=== PATIENT | female | born 1985 | race Two or more races ===

== ENCOUNTER 2020-02-02 13:32 | Outpatient (REF) | payer MEDICARE, MEDICAID, SELFPAY | END 2020-02-02 13:33 | disposition home or self-care (01) | LOC: HO.LAB 13:32 | PROVIDERS: Visit Provider Internal Medicine | DX: Z20.828 Contact with and (suspected) exposure to other viral communicable diseases (principal) | CPT/HCPCS: C9803; U0003 ==

== ENCOUNTER 2020-07-11 07:43 | Outpatient (REF) | payer MEDICARE, MEDICAID, SELFPAY ==
--- NOTE | ~2020-07-11 | XR_ITS ---
EXAMINATION: BILATERAL HAND AND BILATERAL FOOT. CLINICAL INFORMATION: Pain. COMPARISON: None TECHNIQUE: 3 views each hand. 3 views each foot. FINDINGS: Bilateral hands: The PIP, DIP and MCP joint spaces are maintained. The intercarpal joints recommended as well. No visible fracture, dislocation or subluxation seen. Bilateral foot: There are small calcaneal calculi enthesophytes. Ankle mortise and subtalar joints are normal. The joint spaces are maintained normal. No bony erosive changes. The soft tissues are normal. 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 There is a small bone fragment lateral to left distal fourth metatarsal likely old injury. XR/XR foot LT 2V IMPRESSION: Unremarkable bilateral hand exam. Bilateral small calcaneal heel and retrocalcaneal enthesophytes. Short left fourth metatarsal. Small avulsion bone fragment seen lateral to the distal fourth metatarsal likely old injury.
--- NOTE | ~2020-07-11 | XR_ITS ---
EXAMINATION: BILATERAL HAND AND BILATERAL FOOT. CLINICAL INFORMATION: Pain. COMPARISON: None TECHNIQUE: 3 views each hand. 3 views each foot. FINDINGS: Bilateral hands: The PIP, DIP and MCP joint spaces are maintained. The intercarpal joints recommended as well. No visible fracture, dislocation or subluxation seen. Bilateral foot: There are small calcaneal calculi enthesophytes. Ankle mortise and subtalar joints are normal. The joint spaces are maintained normal. No bony erosive changes. The soft tissues are normal. 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 There is a small bone fragment lateral to left distal fourth metatarsal likely old injury. XR/XR hand LT 2V IMPRESSION: Unremarkable bilateral hand exam. Bilateral small calcaneal heel and retrocalcaneal enthesophytes. Short left fourth metatarsal. Small avulsion bone fragment seen lateral to the distal fourth metatarsal likely old injury.
--- NOTE | ~2020-07-11 | XR_ITS ---
EXAMINATION: BILATERAL HAND AND BILATERAL FOOT. CLINICAL INFORMATION: Pain. COMPARISON: None TECHNIQUE: 3 views each hand. 3 views each foot. FINDINGS: Bilateral hands: The PIP, DIP and MCP joint spaces are maintained. The intercarpal joints recommended as well. No visible fracture, dislocation or subluxation seen. Bilateral foot: There are small calcaneal calculi enthesophytes. Ankle mortise and subtalar joints are normal. The joint spaces are maintained normal. No bony erosive changes. The soft tissues are normal. 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 There is a small bone fragment lateral to left distal fourth metatarsal likely old injury. XR/XR hand RT 2V IMPRESSION: Unremarkable bilateral hand exam. Bilateral small calcaneal heel and retrocalcaneal enthesophytes. Short left fourth metatarsal. Small avulsion bone fragment seen lateral to the distal fourth metatarsal likely old injury.
--- NOTE | ~2020-07-11 | XR_ITS ---
EXAMINATION: BILATERAL HAND AND BILATERAL FOOT. CLINICAL INFORMATION: Pain. COMPARISON: None TECHNIQUE: 3 views each hand. 3 views each foot. FINDINGS: Bilateral hands: The PIP, DIP and MCP joint spaces are maintained. The intercarpal joints recommended as well. No visible fracture, dislocation or subluxation seen. Bilateral foot: There are small calcaneal calculi enthesophytes. Ankle mortise and subtalar joints are normal. The joint spaces are maintained normal. No bony erosive changes. The soft tissues are normal. 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 There is a small bone fragment lateral to left distal fourth metatarsal likely old injury. XR/XR foot RT 2V IMPRESSION: Unremarkable bilateral hand exam. Bilateral small calcaneal heel and retrocalcaneal enthesophytes. Short left fourth metatarsal. Small avulsion bone fragment seen lateral to the distal fourth metatarsal likely old injury.
[2020-07-11 08:52] LABS: MANUAL DIFF FLAG NO
[2020-07-11 09:04] LABS: Glucose Urine UA NEG (NEG); Leukocyte Esterase Urine NEG (NEG); Nitrite Urine NEG (NEG); Specific Gravity - Urine 1.025 (1.005-1.025); Urine Blood NEG (NEG); Urine Ketones NEG (NEG); Urine Protein NEG (NEG-TRACE)
[2020-07-11 09:05] LABS: Basophils Percent Auto 0.3 % (0-2); Eosinophils Absolute Auto 0.3 X10*3/uL (0.0-0.4); Eosinophils Percent Auto 2.7 % (0-4); Hematocrit 41.8 % (37-47); Hemoglobin 14.3 g/dl (12.0-16.0); Imm Gran Abs Auto 0.02 X10*3/uL (0.00-0.03); Imm Gran Pct Auto 0.2 % (0.0-0.4); Lymphocytes Absolute Auto 2.2 X10*3/uL (1.2-4.9); Lymphocytes Percent Auto 23.5 % (20-40); Mean Corpuscular HGB Conc 34.2 g/dl (31.0-35.0); Mean Corpuscular Hemoglobin 31.5 pg (27.0-33.0); Mean Corpuscular Volume 92.1 fL (80-98); Mean Platelet Volume 9.5 fL (9.4-12.3); Monocytes Absolute Auto 0.7 X10*3/uL (0.1-1.2); Monocytes Percent Auto 7.1 % (2-11); Neutrophils Absolute Auto 6.2 X10*3/uL (2.0-8.3); Neutrophils Percent Auto 66.2 % (45-73); Platelet Count 307 X10*3/uL (160-400); Red Blood Count 4.54 X10*6/uL (4.20-5.50); Red Cell Distribution Width 12.6 % (11.0-16.0); White Blood Count 9.4 X10*3/uL (4.8-10.8)
[2020-07-11 09:10] LABS: Appearance Urine CLEAR; Color Urine YELLOW
[2020-07-11 09:31] LABS: Alanine Aminotransferase 52 U/L (0-31); Albumin Level 4.2 g/dL (3.5-5.0); Alkaline Phosphatase 101 U/L (39-117); Anion Gap 12 (12-20); Aspartate Amino Transferase 28 U/L (5-31); Bilirubin Total 0.5 mg/dL (0.0-1.0); Blood Urea Nitrogen 10 mg/dL (9-16); Calcium 9.5 mg/dL (8.4-10.2); Carbon Dioxide 22 mmol/L (22-29); Chloride 109 mmol/L (96-108); Estimated Glomerular Filt Rate > 60; Glucose Random 101 mg/dL (60-115); Potassium 3.8 mmol/L (3.3-5.1); Rheumatoid Factor < 15.0 IU/mL (<15.0); Sodium 139 mmol/L (135-145); Total Protein 7.6 g/dL (6.5-8.0); Uric Acid 3.6 mg/dL (2.4-5.7)
[2020-07-11 09:33] LABS: B Type Natriuretic Peptide < 10 pg/mL (<100)
[2020-07-11 09:56] LABS: TSH reflex Free T4 0.95 uIU/mL (0.32-4.0)
[2020-07-11 10:23] LABS: Erythrocyte Sedimentation Rate 23 MM/HR (0-20)
[2020-07-13 14:07] LABS: Anti Nuclear Antibody Screen NEGATIVE (NEGATIVE)
== END 2020-07-11 07:44 | disposition home or self-care (01) ==
LOC: HO.LAB 07:43
PROVIDERS: Visit Provider Internal Medicine
DX: R22.43 Localized swelling, mass and lump, lower limb, bilateral (principal); M79.89 Other specified soft tissue disorders
CPT/HCPCS: 36415; 73120; 73620; 80053; 81003; 83880; 84443; 84550; 85025; 85652; 86038; 86039; 86140; 86431

== ENCOUNTER → 2020-10-10 10:14 | Outpatient (BNVA) | payer MEDICARE, MEDICAID, SELFPAY | PROVIDERS: PCP Internal Medicine; Visit Provider Nurse Practitioner Family | DX: M47.816 Spondylosis without myelopathy or radiculopathy, lumbar region (principal); M53.3 Sacrococcygeal disorders, not elsewhere classified | CPT/HCPCS: 99202 ==

== ENCOUNTER 2020-10-12 11:07 | Outpatient (REF) | payer MEDICARE, MEDICAID, SELFPAY ==
--- NOTE | ~2020-10-12 | XR_ITS ---
EXAMINATION: XR LUMBOSACRAL SPINE CLINICAL INFORMATION: Spondylosis without myelopathy or radiculopathy. COMPARISON: None TECHNIQUE: Three views of the lumbosacral spine. FINDINGS: There is straightening of the lumbar spine. Otherwise, the exam is unremarkable. No significant disc space narrowing is seen. Some minimal spondylitic changes seen with some minor superior endplate osteophytes arising from L3 and L4. XR/XR lumbar spine 2-3V IMPRESSION: Minimal spondylitic changes with good preservation of disc heights and disc spaces.
== END 2020-10-12 11:08 | disposition home or self-care (01) ==
LOC: HO.XRAY 11:07
PROVIDERS: PCP Internal Medicine; Visit Provider Nurse Practitioner Family
DX: M47.816 Spondylosis without myelopathy or radiculopathy, lumbar region (principal)
CPT/HCPCS: 72100

== ENCOUNTER → 2020-10-26 14:06 | Outpatient (BNVA) | payer MEDICARE, SELFPAY | PROVIDERS: PCP Internal Medicine; Visit Provider Nurse Practitioner Family | DX: M47.816 Spondylosis without myelopathy or radiculopathy, lumbar region (principal); M53.3 Sacrococcygeal disorders, not elsewhere classified | CPT/HCPCS: Q3014 ==

== ENCOUNTER 2020-11-15 09:31 | Outpatient (AMB) | payer MEDICARE, MEDICAID, SELFPAY ==
[2020-11-15 09:33] VITALS: BP 142/80; PULSE 96; TEMP 36.6; O2SAT 98; BMI 36.3
--- NOTE | 2020-11-15 09:33 | MHC.PC.OV ---
Vital Signs 11/15/20 09:33 Height 5 ft 2 in Weight 199 lb BMI 36.3 BP 142/80 H Pulse 96 Pulse Source Pulse Oximeter Temp 97.9 F Pulse Oximetry (%) 98 Oxygen Delivery Method Room Air Intake Visit Reasons: polyarthralgia,insomnia,lumbar DDD-Needs PE booked Marketing Services Coordinator Required: No Accompanied by: Self / Same As Patient Allergies No Known Allergies [No Known Allergies*] Allergy (Verified 02/17/23 17:38) Medication List - Last Reconciled 02/17/23 by Roosevelt Emmanuel MD amitriptyline 100 mg PO BEDTIME aripiprazole 15 mg PO DAILY cyclobenzaprine 10 mg PO TID PRN divalproex ER 1,000 mg PO DAILY gabapentin 800 mg PO TID gabapentin 800 mg PO TID 30 days medroxyprogesterone 150 mg IM [id number] meloxicam 15 mg PO DAILY sertraline 100 mg PO DAILY sertraline 25 mg PO BEDTIME tramadol 50 mg PO BID PRN 15 days trazodone 200 mg PO BEDTIME PRN Tobacco use date assessed: 11/15/20 HPI polyarthralgia,insomnia,lumbar DDD-Needs PE booked HPI Details Patient comes in today for her follow up visit States that she just had her last injection Tx from [facility] last week on 11/09/20, and that her next appointment will be in about a month on 12/11/20 States that she experienced what she felt was a panic attack yesterday Recalls that she felt that her HR was too fast and the whole episode lasted for a couple of minutes before gradually subsiding on their own She denies any chest pains, dizziness or SOB when the above episode/symptoms were occurring She denies any headaches or dizziness No nausea/vomiting, no abdominal pain No change in bowel habits noted States that she sees psychiatry for follow up of her mood disorder every couple of months She has also been reportedly advised by her four slide operator to start the sterilization process and to start getting her depo injections every 3 months Patient would also like to get her flu shot today [facility] Medical History (Updated 02/17/23 @ 18:37 by Roosevelt Emmanuel MD) Impaired fasting glucose Arthralgia Localized swelling of both feet Swelling of both hands Cervical spondylosis with radiculopathy Low back pain Depression Anxiety Insomnia Gastritis Obesity (BMI 30-39.9) Smoker Left lateral epicondylitis Lumbar degenerative disc disease Surgical History History of section Family History Father No problems noted. Mother Past heart attack Sister Endometrial ca Other Mental health problem Substance abuse Social History Housing: House Alcohol intake: former Patient Tobacco Use Status: Current everyday Tobacco user Tobacco use type: Cigarette Cigarettes Per Day: 8 e-Cigarette/Vaping Use: Never Used Second Hand Smoke Exposure: Yes service: No Current occupational status: disabled Current occupation: rt hand Cognitive needs: No Hearing needs: No Vision needs: No Questionnaire PHQ-9 Over the last 2 weeks, how often have you been bothered by any of the following problems? 1. Little interest or pleasure in doing things: not at all 2. Feeling down, depressed, or hopeless: not at all 3. Trouble falling or staying asleep, or sleeping too much: not at all 4. Feeling tired or having little energy: not at all 5. Poor appetite or overeating: not at all 6. Feeling bad about yourself - or that you are a failure or have let yourself or your family down: not at all 7. Trouble concentrating on things, such as reading the newspaper or watching television: not at all 8. Moving or speaking so slowly that other people could have noticed. Or the opposite - being so fidgety or restless that you have been moving around a lot more than usual: not at all 9. Thoughts that you would be better off or of hurting yourself in some way: not at all Total score: 0 Depression Screening Interpretation: Negative 21452 - PHQ-9 Billing: Yes Source: Developed by Drs. Ad Santiago, Megna Manning, Isaac Chavis and colleagues, with an educational miguel from [employer]. Thrive Questionnaire Date Thrive assessed: 11/15/20 I am a: Patient What is your living situation today?: I have a steady place to live Within the past 12 months, did the food you bought not last and you didn't have the money to get more?: Never true Within the past 12 months, did you worry whether your food would run out before you got money to buy more?: Never true Do you have trouble paying for medicines?: No Do you have trouble getting transportation to medical appointments?: No Do you have trouble paying your heating and electricity bill?: No Do you have trouble taking care of your child, family member or friend?: No Do you have trouble with day-to-day activities such as bathing, preparing meals, shopping, managing finances, etc.?: No Are you currently unemployed and looking for a job?: No Are you interested in more education?: No Currently or been in a relationship where the following occur: no concerns reported AUDIT C Alcohol Use Questionnaire (AUDIT-C) 1. How often do you have a drink containing alcohol?: Never 3. How often do you have six or more drinks on one occasion?: Never Total Score: 0 Score Reviewed/Action Taken: Yes ROMY-7 AMB Questionnaire ROMY-7 Date ROMY - 7 assessed: 11/15/20 Feeling nervous, anxious, or on edge: 0 = Not at all Not being able to stop or control worryin = Not at all Worrying too much about different things: 0 = Not at all Trouble relaxin = Not at all Being so restless that it is hard to sit still: 0 = Not at all Becoming easily annoyed or irritable: 0 = Not at all Feeling afraid as if something awful might happen: 0 = Not at all Total ROMY-7 score (0-4 normal; 5-9 mild; 10-14 moderate; 15-21 severe): 0 Source: Developed by Drs. Ad Santiago, Megan Manning, Isaac Chavis and colleagues, with an educational miguel from [employer]. Review of Systems Const Denies chills, Reports fatigue, Denies fever(s) and Denies headache(s) ENT Denies dysphagia, Denies dizziness, Denies otalgia, Denies headache(s), Reports neck pain (chronic), Denies odynophagia, Denies sinus pain and Denies sore throat Card Denies chest pain, Denies palpitations (except for the one episode that occurred yesterday) and Denies dyspnea Resp Denies chest congestion, Denies cough and Denies dyspnea GI Denies abdominal pain, Denies constipation, Denies dysphagia, Denies heartburn, Denies diarrhea, Denies nausea, Denies odynophagia and Denies vomiting Denies difficulty voiding, Denies nocturia, Denies dysuria and Denies urinary urgency Musc Reports back pain (chronic, over the lower back), Reports arthralgias (involving multiple joints, including the left knee), Denies joint swelling and Reports neck pain (chronic) Skin/Breast Denies rash Neuro Denies dizziness and Denies headache(s) Psych Reports anxiety, Reports depression and Reports panic attacks (see HPI) Endo Reports fatigue and Denies palpitations (except for the one episode that occurred yesterday) Physical exam (Primary Care) Vital Signs: Last Vital Signs Temp 97.9 F 11/15/20 09:33 Pulse 96 11/15/20 09:33 BP 142/80 H 11/15/20 09:33 Pulse Ox 98 11/15/20 09:33 Oxygen Delivery Method Room Air 11/15/20 09:33 BMI result Body Mass Index 36.3 Tobacco/Smoking Status: Tobacco use Status Tobacco use date assessed 11/15/20 11/15/20 09:37 Patient Tobacco Use Status Current everyday Tobacco 11/15/20 09:37 Tobacco use type Cigarette 11/15/20 09:37 PHQ-9: PHQ-9 Score PHQ-9: Total score 0 02/17/23 18:52 Depression Screening Interpretation: Negative Date Thrive assessed: 11/15/20 Currently or been in a relationship where the following occur: no concerns reported Const General: no acute distress and alert HENMT Ears: TM's normal bilaterally and EAC's normal Throat: Yes posterior oropharynx normal and Yes tonsils normal (no TP congestion noted) Neck Neck: Yes no lymphadenopathy and Yes supple Resp Auscultation: clear to auscultation bilaterally, no rales and no wheezes Cardio Rate: regular rate Rhythm: regular rhythm Heart sounds: no murmurs GI Palpation (GI): Soft to palpation and nontender Auscultation: normal bowel sounds Back/Spine/Pelvis Cervical Spine: Cervical spine tenderness Thoracic/Lumbar Spine: lumbar spinal tenderness Skin Rashes: no rashes Extrem General: Yes no clubbing, cyanosis or edema Right upper extremity: shoulder/upper arm Details: tenderness (diffusely over the scapular area) Left upper extremity: shoulder/upper arm Details: tenderness (diffusely over the scapular areas) Left lower extremity: knee Details: tenderness; no swelling Office Procedures Flu Questionnaire Does the patient have a severe egg allergy?: No Does the patient have severe life threatening allergies?: No Does the patient have a fever or illness today?: No Has the patient ever had Guillain-Axtell Syndrome?: No Has the patient ever had any past reaction to a flu shot?: No Immunizations flu vacc [id number] 6mos up(PF) 60 mcg(15 mcgx4)/0.5 mL IM syringe Performing Provider: Roosevelt Emmanuel MD Performing Location: [facility] Administered by: YARIEL Scales on 11/15/20 09:38 Dose Route Admin Location Dispensed Lot Number Expiration Date NDC Clinical Engineering Director 0.5 mL IM Left Deltoid 0.5 mL [id number] 08/08/21 52207-489-21 [employer] VIS Given Date VIS Provided VIS Publication Date 11/15/20 Single Vaccine 20 Eligibility Eligibility Date Funding Source Not [facility] Eligible 11/15/20 Private Assessment and Plan Assessment & Plan (1) Cervical spondylosis with radiculopathy: Code(s): M47.22 - Other spondylosis with radiculopathy, cervical region Plan: Follow up with [facility] as scheduled - has been getting injection Tx into her cervical spine at [facility] every few months as needed with (+) relief of symptoms (2) Lumbar degenerative disc disease: Code(s): M51.36 - Other intervertebral disc degeneration, lumbar region Plan: Follow up with [facility] as scheduled Continue Meloxicam 15 mg QD PRN and Cyclobenzaprine 10 mg TID PRN (3) Arthralgia: Code(s): M25.50 - Pain in unspecified joint Qualifiers: Joint pain location: unspecified Qualified Code(s): M25.50 - Pain in unspecified joint Plan: Labs done a few months ago (when patient presented with swelling and pain of both hands and both feet) came back normal except for elevated ESR and CRP X-rays of the hands came out normal; feet x-rays showed some old small avulsion Fx and (+) calcaneal spurs States that her hand and feet pain and swelling have subsided since but she continues to experience mutliple joint pains and diffuse myalgia - suspect fibromyalgia and possibly polyarthalgia She was referred to and seen by rheumatology last month and was sent for some additional work ups and recommended that as she does not seem to be able to tolerate physical therapy, to try aquatic therapy instead (4) Gastritis: Code(s): K29.70 - Gastritis, unspecified, without bleeding Qualifiers: Chronicity: unspecified Gastritis bleeding: without bleeding Gastritis type: unspecified gastritis Qualified Code(s): K29.70 - Gastritis, unspecified, without bleeding Plan: Dietary restrictions reinforced Continue Carafate 1 gm BID PRN Follow up with GI as scheduled (5) Insomnia: Code(s): G47.00 - Insomnia, unspecified Qualifiers: Insomnia type: unspecified Qualified Code(s): G47.00 - Insomnia, unspecified Plan: Sleep hygiene reinforced Continue Trazodone 100 mg Q HS PRN (6) Anxiety: Code(s): F41.9 - Anxiety disorder, unspecified Plan: Continue Hydroxyzine 25 mg q 6 hours PRN Is also on Sertraline, which helps with her anxiety as well (7) Depression: Code(s): F32.9 - Major depressive disorder, single episode, unspecified Qualifiers: Active/Remission status: currently active Depression Type: major depressive disorder Major depression episode severity: unspecified Major depression recurrence: recurrent Qualified Code(s): F33.9 - Major depressive disorder, recurrent, unspecified Plan: Continue Sertraline 100 mg QD, Aripiprazole 15 mg QD and Mirtazapine 15 mg Q HS Follow up with psychiatry as scheduled (8) Smoker: Code(s): F17.200 - Nicotine dependence, unspecified, uncomplicated Plan: Counseled again on smoking cessation Was started on nicotine patches a few months ago to help her quit smoking - to continue as instructed (9) Obesity (BMI 30-39.9): Code(s): E66.9 - Obesity, unspecified Plan: Reinforced diet/exercise as tolerated/lose weight Plan Flu vaccine given today Follow up in 3 months Orders: Orders Influenza [id number] Immunization 11/15/20 Z23 - Encounter for immunization Coding Level of Care Code Est Pt Level 4 (89207) Diagnoses Cervical spondylosis with radiculopathy M47.22 Lumbar degenerative disc disease M51.36 Arthralgia, unspecified joint M25.50 Joint pain location: unspecified Gastritis without bleeding, unspecified chronicity, unspecified gastritis type K29.70 Chronicity: unspecified Gastritis bleeding: without bleeding Gastritis type: unspecified gastritis Insomnia, unspecified type G47.00 Insomnia type: unspecified Anxiety F41.9 Episode of recurrent major depressive disorder, unspecified depression episode severity F33.9 Active/Remission status: currently active Depression Type: major depressive disorder Major depression episode severity: unspecified Major depression recurrence: recurrent Smoker F17.200 Obesity (BMI 30-39.9) E66.9 Additional Codes PHQ-9 - 12801 - PHQ-9 Billing: Yes ([id number])
== END 2020-11-15 10:06 | disposition home or self-care (01) ==
LOC: HO.HMGH 09:31
PROVIDERS: PCP Internal Medicine; Visit Provider Internal Medicine
DX: M47.22 Other spondylosis with radiculopathy, cervical region (principal); F33.9 Major depressive disorder, recurrent, unspecified; M51.36 Other intervertebral disc degeneration, lumbar region; M25.50 Pain in unspecified joint; K29.70 Gastritis, unspecified, without bleeding; G47.00 Insomnia, unspecified; F41.9 Anxiety disorder, unspecified; F17.210 Nicotine dependence, cigarettes, uncomplicated; E66.9 Obesity, unspecified
CPT/HCPCS: 99214

== ENCOUNTER 2021-01-30 13:25 | Outpatient (REF) | payer BC, SELFPAY ==
--- NOTE | ~2021-01-30 | XR_ITS ---
EXAMINATION: XR KNEE, LEFT CLINICAL INFORMATION: Left knee pain COMPARISON: None TECHNIQUE: Four views of the left knee. FINDINGS: Mild generalized tibial spine spurring and patella spurring. No effusion. Borderline patella pj. Patellofemoral joint without subluxation. XR/XR knee LT 4V IMPRESSION: Mild spurring only.
== END 2021-01-30 13:26 | disposition home or self-care (01) ==
LOC: HO.XRAY 13:25
PROVIDERS: PCP Internal Medicine; Visit Provider Student in an Organized Health Care Education/Training Program
DX: M25.562 Pain in left knee (principal)
CPT/HCPCS: 73564

== ENCOUNTER 2021-03-15 06:07 | Outpatient (REF) | payer MEDICARE, SELFPAY ==
--- NOTE | ~2021-03-15 | XR_ITS ---
EXAMINATION: XR KNEE AP STANDING, BILATERAL CLINICAL INFORMATION: Right knee pain. COMPARISON: None TECHNIQUE: AP bilateral standing view of the knees was obtained. FINDINGS: No significant joint space narrowing. No marginal osteophytes. No osseous erosion. No fracture or dislocation. No abnormal soft tissue calcification. XR/XR knee standing BI IMPRESSION: Unremarkable examination.
== END 2021-03-15 06:08 | disposition home or self-care (01) ==
LOC: HO.HOSX 06:07
PROVIDERS: Visit Provider Physician Assistant
DX: M22.2X2 Patellofemoral disorders, left knee (principal); M25.561 Pain in right knee
CPT/HCPCS: 20610; 73565; 99202; J1040

== ENCOUNTER 2023-02-17 16:24 | Outpatient (AMB) | payer MEDICARE, SELFPAY ==
--- NOTE | 2023-02-17 16:24 | MHC.PC.OV ---
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 Accompanied by: Self / Same As Patient Allergies No Known Allergies [No Known Allergies*] Allergy (Verified 02/17/23 17:38) Medication List - Last Reconciled 02/17/23 by Roosevelt Emmanuel MD amitriptyline 100 mg PO BEDTIME aripiprazole 15 mg PO DAILY cyclobenzaprine 10 mg PO TID PRN divalproex ER 1,000 mg PO DAILY gabapentin 800 mg PO TID medroxyprogesterone 150 mg IM [id number] meloxicam 15 mg PO DAILY sertraline 100 mg PO DAILY sertraline 25 mg PO BEDTIME tramadol 50 mg PO BID PRN 15 days trazodone 200 mg PO BEDTIME PRN Tobacco use date assessed: 02/17/23 Dental Screening Dental Screen Date: 02/17/23 Did you have a dental visit in the last 12 months?: No Did you have a dental problem in the last 6 months where you did not have access to dental care?: No Was dental information given to patient?: No HPI Citlali Selby.Gavin HPI Details Patient comes in today to reestablish care - was last seen almost 2 years ago on 02/19/2021 States that she moved down to [place] for a couple of years and just moved back up here to [facility] a few weeks ago Recalls being advised by her PCP down in [place] at her last visit there back in October 2022 that her HgbA1c was up at 5.9% and she should have this followed up in a couple of months States that she was also supposed to have a sleep study scheduled there but she was not able to get it done before moving back here States that she continues to experience chronic pain diffusely, including over her neck, lower back and multiple joints Was taking Gabapentin 800 mg TID but for unclear reasons, this was discontinued by her doctors there a few months ago and she would like to get back on it as she states it does help with her pain States that she was also seeing pain management when she was down in [place] and would like to be referred to pain management here as well Would also like to get a referral to psychiatry as she is on several psychiatric Rx She denies any headaches or dizziness Denies any chest pains, no SOB No nausea/vomiting, no abdominal pain No change in bowel habits noted [facility] Medical History (Updated 02/17/23 @ 18:37 by Roosevelt Emmanuel MD) Impaired fasting glucose Arthralgia Localized swelling of both feet Swelling of both hands Cervical spondylosis with radiculopathy Low back pain Depression Anxiety Insomnia Gastritis Obesity (BMI 30-39.9) Smoker Left lateral epicondylitis Lumbar degenerative disc disease Surgical History History of section Family History Father No problems noted. Mother Past heart attack Sister Endometrial ca Other Mental health problem Substance abuse Social History Housing: House Alcohol intake: former Patient Tobacco Use Status: Current everyday Tobacco user Tobacco use type: Cigarette Cigarettes Per Day: 8 e-Cigarette/Vaping Use: Never Used Second Hand Smoke Exposure: Yes service: No Current occupational status: disabled Current occupation: rt hand Cognitive needs: No Hearing needs: No Vision needs: No Questionnaire PHQ-9 Over the last 2 weeks, how often have you been bothered by any of the following problems? 1. Little interest or pleasure in doing things: not at all 2. Feeling down, depressed, or hopeless: not at all 3. Trouble falling or staying asleep, or sleeping too much: not at all 4. Feeling tired or having little energy: not at all 5. Poor appetite or overeating: not at all 6. Feeling bad about yourself - or that you are a failure or have let yourself or your family down: not at all 7. Trouble concentrating on things, such as reading the newspaper or watching television: not at all 8. Moving or speaking so slowly that other people could have noticed. Or the opposite - being so fidgety or restless that you have been moving around a lot more than usual: not at all 9. Thoughts that you would be better off or of hurting yourself in some way: not at all Total score: 0 Depression Screening Interpretation: Negative (is on Rx for depression and mood disorder) Depression Screening Done: Yes 71959 - PHQ-9 Billing: Yes Source: Developed by Drs. Ad Santiago, Megan Manning, Isaac Chavis and colleagues, with an educational miguel from [employer]. Thrive Questionnaire Date Thrive assessed: 02/17/23 I am a: Patient What is your living situation today?: I have a steady place to live Within the past 12 months, did the food you bought not last and you didn't have the money to get more?: Never true Within the past 12 months, did you worry whether your food would run out before you got money to buy more?: Never true Do you have trouble paying for medicines?: No Do you have trouble getting transportation to medical appointments?: No Do you have trouble paying your heating and electricity bill?: No Do you have trouble taking care of your child, family member or friend?: No Do you have trouble with day-to-day activities such as bathing, preparing meals, shopping, managing finances, etc.?: No Are you currently unemployed and looking for a job?: No Are you interested in more education?: No Please select the resources that you would like help with: None Currently or been in a relationship where the following occur: no concerns reported AUDIT C Alcohol Use Questionnaire (AUDIT-C) 1. How often do you have a drink containing alcohol?: Never 3. How often do you have six or more drinks on one occasion?: Never Total Score: 0 Score Reviewed/Action Taken: Yes ROMY-7 AMB Questionnaire ROMY-7 Date ROMY - 7 assessed: 02/17/23 Feeling nervous, anxious, or on edge: 1 = Several days Not being able to stop or control worryin = Several days Worrying too much about different things: 1 = Several days Trouble relaxin = Several days Being so restless that it is hard to sit still: 1 = Several days Becoming easily annoyed or irritable: 1 = Several days Feeling afraid as if something awful might happen: 1 = Several days Total ROMY-7 score (0-4 normal; 5-9 mild; 10-14 moderate; 15-21 severe): 7 Source: Developed by Drs. Ad Santiago, Isaac Long Kroenke and colleagues, with an educational miguel from [employer]. Review of Systems Const Denies chills, Reports fatigue, Denies fever(s) and Denies headache(s) ENT Denies dysphagia, Denies dizziness, Denies otalgia, Denies headache(s), Reports neck pain (chronic), Denies odynophagia, Denies sinus pain and Denies sore throat Card Denies chest pain, Denies palpitations and Denies dyspnea Resp Denies chest congestion, Denies cough and Denies dyspnea GI Denies abdominal pain, Denies constipation, Denies dysphagia, Denies heartburn, Denies diarrhea, Denies nausea, Denies odynophagia and Denies vomiting Denies difficulty voiding, Denies nocturia, Denies dysuria and Denies urinary urgency Musc Reports back pain (chronic, over the lower back), Reports arthralgias (involving multiple joints, including the left knee), Denies joint swelling and Reports neck pain (chronic) Skin/Breast Denies rash Neuro Denies dizziness and Denies headache(s) Psych Reports anxiety and Reports depression Endo Reports fatigue and Denies palpitations Physical exam (Primary Care) Vital Signs: Last Vital Signs Pulse 83 02/17/23 16:25 BP 122/80 02/17/23 16:25 Pulse Ox 96 02/17/23 16:25 Oxygen Delivery Method Room Air 02/17/23 16:25 BMI result Body Mass Index 37.5 Tobacco/Smoking Status: Tobacco use Status Tobacco use date assessed 02/17/23 02/17/23 16:32 Patient Tobacco Use Status Current everyday Tobacco 02/17/23 16:32 Tobacco use type Cigarette 02/17/23 16:32 e-Cigarette/Vaping Use Never Used 02/17/23 16:32 PHQ-9: PHQ-9 Score PHQ-9: Total score 0 02/17/23 18:05 Depression Screening Interpretation: Negative (is on Rx for depression and mood disorder) Thrive Assessment: Date of Thrive Assessment Date Thrive assessed 02/17/23 02/17/23 16:32 Currently or been in a relationship where the following occur: no concerns reported Const General: no acute distress and alert HENMT Ears: TM's normal bilaterally and EAC's normal Throat: Yes posterior oropharynx normal and Yes tonsils normal (no TP congestion noted) Neck Neck: Yes no lymphadenopathy and Yes supple Resp Auscultation: clear to auscultation bilaterally, no rales and no wheezes Cardio Rate: regular rate Rhythm: regular rhythm Heart sounds: no murmurs GI Palpation (GI): Soft to palpation and nontender Auscultation: normal bowel sounds Back/Spine/Pelvis Cervical Spine: Cervical spine tenderness Thoracic/Lumbar Spine: lumbar spinal tenderness Skin Rashes: no rashes Extrem General: Yes no clubbing, cyanosis or edema Right upper extremity: shoulder/upper arm Details: tenderness (diffusely over the scapular area) Left upper extremity: shoulder/upper arm Details: tenderness (diffusely over the scapular areas) Left lower extremity: knee Details: tenderness; no swelling Results AMB Hemoglobin A1c AMB Hemoglobin A1c 5.5 % Last Edit by Robert Gonsalez on 02/17/23 17:23 Results Reviewed Results Reviewed: Laboratory Last Values Hgb A1c (Clinic) 5.5 % (4.0-6.0) 02/17/23 17:16 Assessment and Plan Assessment & Plan (1) Cervical spondylosis with radiculopathy: Code(s): M47.22 - Other spondylosis with radiculopathy, cervical region Plan: Patient was getting injection Tx into her cervical spine at [facility] every few months as needed with (+) relief of symptoms when she was here a couple of years ago States that she was also following up with pain management when she was in [place] and would now like to reestablish with pain management here - referral done (2) Lumbar degenerative disc disease: Code(s): M51.36 - Other intervertebral disc degeneration, lumbar region Plan: Continue Meloxicam 15 mg QD PRN and Cyclobenzaprine 10 mg TID PRN Per request, will also start her back on Gabapentin 800 mg TID Will refer her again to pain management (3) Arthralgia: Code(s): M25.50 - Pain in unspecified joint Qualifiers: Joint pain location: unspecified Qualified Code(s): M25.50 - Pain in unspecified joint Plan: Work ups done in the past came back normal except for elevated ESR and CRP; the rest of her labs were normal then X-rays of the hands came out normal; feet x-rays showed some old small avulsion Fx and (+) calcaneal spurs She was referred back to rheumatology then and they have advised her that her symptoms are more consistent with CTS and she does not have any inflammatory arthritis at the time but she subsequently moved to [place] so they were not able to schedule her for any confirmatory studies then Will refer her to [facility] Rheumatology for reassessment and management (4) Impaired fasting glucose: Code(s): R73.01 - Impaired fasting glucose Plan: Her HgbA1c was supposedly up at 5.9% when she was still down in [place] back in October 2022 and she was advised to have this followed up [facility] In-office HgbA1c done today is at 5.5% - patient is reassured that based on her current numbers, her overall blood sugar control is normal Will send her for some routine labs [facility] for follow up, including a fasting lipid profile (5) Gastritis: Code(s): K29.70 - Gastritis, unspecified, without bleeding Qualifiers: Chronicity: unspecified Gastritis bleeding: without bleeding Gastritis type: unspecified gastritis Qualified Code(s): K29.70 - Gastritis, unspecified, without bleeding Plan: Dietary restrictions reinforced States that she has not had any issues with her stomach lately (6) Witnessed apneic spells: Code(s): R06.81 - Apnea, not elsewhere classified Plan: Will refer her to Sleep Medicine for further evaluation and management and to r/o BHAVIN (7) Insomnia: Code(s): G47.00 - Insomnia, unspecified Qualifiers: Insomnia type: unspecified Qualified Code(s): G47.00 - Insomnia, unspecified Plan: Sleep hygiene reinforced Continue Trazodone 100 mg Q HS PRN (8) Anxiety: Code(s): F41.9 - Anxiety disorder, unspecified Plan: Continue Hydroxyzine 25 mg Q 6 hours PRN Is also on Sertraline, which helps with her anxiety as well (9) Depression: Code(s): F32.9 - Major depressive disorder, single episode, unspecified Qualifiers: Active/Remission status: currently active Depression Type: major depressive disorder Major depression episode severity: unspecified Major depression recurrence: recurrent Qualified Code(s): F33.9 - Major depressive disorder, recurrent, unspecified Plan: Continue Sertraline 100 mg QAM and 25 mg Q HS, Aripiprazole 15 mg QD, Amitriptyline 100 mg Q HS and Depakote ER 1000 mg QD Will refer her again to psychiatry and therapist for further evaluation and management (10) Smoker: Code(s): F17.200 - Nicotine dependence, unspecified, uncomplicated Plan: Counseled again on smoking cessation (11) Obesity (BMI 30-39.9): Code(s): E66.9 - Obesity, unspecified Plan: Reinforced diet; exercise and weight loss options are quite limited due to her physical issues Plan Follow up in 3 months Orders: Orders Comprehensive [place]. Panel Fast Today E78.00 - Pure hypercholesterolemia, unspecified, M25.50 - Pain in unspecified joint UA CC w/rflx Micro + Cult Today M25.50 - Pain in unspecified joint, R30.0 - Dysuria AMB Hemoglobin A1c Today Z13.9 - Encounter for screening, unspecified C Reactive Protein Today M25.50 - Pain in unspecified joint Complete Blood Count Auto Diff Today M25.50 - Pain in unspecified joint Lipid Panel Today E78.00 - Pure hypercholesterolemia, unspecified, M25.50 - Pain in unspecified joint Erythrocyte Sedimentation Rate Today M25.50 - Pain in unspecified joint TSH reflex Free T4 Today E78.00 - Pure hypercholesterolemia, unspecified, M25.50 - Pain in unspecified joint Uric Acid Today M25.50 - Pain in unspecified joint Vitamin D 25-OH Total Today E55.9 - Vitamin D deficiency, unspecified, M25.50 - Pain in unspecified joint Rheumatoid Factor Today M25.50 - Pain in unspecified joint TRISTAN Reflex Titer and Pattern Today M25.50 - Pain in unspecified joint Referrals Sleep Medicine Referral R06.81 - Apnea, not elsewhere classified, R53.82 - Chronic fatigue, unspecified Pain Management Referral M47.22 - Other spondylosis with radiculopathy, cervical region, M51.36 - Other intervertebral disc degeneration, lumbar region Rheumatology Referral M25.50 - Pain in unspecified joint Psychiatry Referral F32.9 - Major depressive disorder, single episode, unspecified, F41.9 - Anxiety disorder, unspecified Medications: New gabapentin 800 mg PO TID 30 days 90 tabs 3RF Coding Level of Care Code Est Pt Level 4 (48542) Diagnoses Cervical spondylosis with radiculopathy M47.22 Lumbar degenerative disc disease M51.36 Arthralgia, unspecified joint M25.50 Joint pain location: unspecified Impaired fasting glucose R73.01 Gastritis without bleeding, unspecified chronicity, unspecified gastritis type K29.70 Chronicity: unspecified Gastritis bleeding: without bleeding Gastritis type: unspecified gastritis Witnessed apneic spells R06.81 Insomnia, unspecified type G47.00 Insomnia type: unspecified Anxiety F41.9 Episode of recurrent major depressive disorder, unspecified depression episode severity F33.9 Active/Remission status: currently active Depression Type: major depressive disorder Major depression episode severity: unspecified Major depression recurrence: recurrent Smoker F17.200 Obesity (BMI 30-39.9) E66.9
[2023-02-17 16:25] VITALS: BP 122/80; PULSE 83; O2SAT 96; BMI 37.5
== END 2023-02-17 17:27 | disposition home or self-care (01) ==
PROVIDERS: PCP Internal Medicine; Visit Provider Internal Medicine
DX: M47.22 Other spondylosis with radiculopathy, cervical region (principal); M51.36 Other intervertebral disc degeneration, lumbar region; R73.01 Impaired fasting glucose; F33.9 Major depressive disorder, recurrent, unspecified; K29.70 Gastritis, unspecified, without bleeding; R06.81 Apnea, not elsewhere classified; G47.00 Insomnia, unspecified; F41.9 Anxiety disorder, unspecified; F17.200 Nicotine dependence, unspecified, uncomplicated
CPT/HCPCS: 83036; 99214

== ENCOUNTER 2023-02-20 11:08 | Outpatient (REF) | payer OTHER, MEDICAID, SELFPAY ==
--- NOTE | ~2023-02-20 | XR_ITS ---
EXAMINATION: XR LUMBOSACRAL SPINE WITH OBLIQUES CLINICAL INFORMATION: Sacrococcygeal disorders. COMPARISON: Radiographs dated 10/12/2020. TECHNIQUE: AP, both oblique, and lateral views of the lumbar spine. Lateral view of the lumbosacral junction. FINDINGS: The vertebral bodies and posterior elements are normal. No spondylolysis defect is seen on the oblique views, and the sacroiliac joints are well-maintained. The disc spaces are preserved and the vertebral alignment is normal. There is mild anterior spondylosis of the L3 and L4 upper endplates. The paraspinal soft tissues are normal. XR/XR lumbar spine 4V min IMPRESSION: 1. No acute fracture or spondylolisthesis is seen. There is no spondylolysis defect. 2. The lumbar disc spaces are well-maintained. 3. There is mild anterior spondylosis of the L3 and L4 upper endplates. 4. The sacroiliac joints are symmetric and well-maintained.
--- NOTE | ~2023-02-20 | XR_ITS ---
EXAMINATION: XR SHOULDER, LEFT CLINICAL INFORMATION: Pain. COMPARISON: None available. TECHNIQUE: AP external rotation, Grashey, scapular Y, and axillary views of the left shoulder. FINDINGS: The bones and soft tissues are normal. No fracture. Glenohumeral and acromioclavicular alignment is anatomic with normal joint space. No abnormal soft tissue calcifications. XR/XR shoulder LT min 2V IMPRESSION: Normal left shoulder.
== END 2023-02-20 11:09 | disposition home or self-care (01) ==
LOC: HO.XRAY 11:08
PROVIDERS: PCP Internal Medicine; Visit Provider Nurse Practitioner Family
DX: M53.3 Sacrococcygeal disorders, not elsewhere classified (principal); M47.816 Spondylosis without myelopathy or radiculopathy, lumbar region; M51.36 Other intervertebral disc degeneration, lumbar region; M25.512 Pain in left shoulder
CPT/HCPCS: 72110; 73030

== ENCOUNTER 2023-02-20 11:08 | Outpatient (AMB) | payer OTHER, MEDICAID, SELFPAY ==
--- NOTE | 2023-02-20 11:08 | A.OFFVIS_ITS ---
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 She was seen in our office 3 years ago by Seema ROMERO. She was also attending pain clinic in [place] and has moved back to [place] in October 2022. Patient has been seeing [facility] for neck and lower back pain regularly and completed injections and PT for both pain generators. She presents today to discuss treatments for multiple joint pain. I have informed patient that we are similar to [facility] office and provide treatments. She does have Rheumatology visit coming on 04/10/23. Left shoulder pain has been present for over 2 months without any inciting events. Her range of motion are preserved but reports pain increase with overhead reaches in subacromial area of left shoulder. She does have history of cervical radiculopathy and received neck injections at [facility]. Patient cannot recall the name of injections for her neck or back sites. Low back pain is mainly axial which extends to her sacral regions bilaterally. Fortino's testing reproduce knee in the medial joint line and lateral hip pain but not low back pain. Denies any radicular symptoms to her legs. She also repor ts widespread body pain and states she has fibromyalgia. Patient pointed to previous back injection sites at [facility] which point to sacroiliac joint areas. We will send request to [facility] for previous injections. In meantime, we will update her lumbar spine and obtain left shoulder xrays prior to interventional treatments. Patient has been managing her pain with gabapentin 800 mg TID, meloxicam 15 mg daily, cyclobenzabrine 10 mg TID prn and tramadol 50 mg BID prn with partial benefit. She is in the process of having these refilled with her current PCP office but requests refill for cyclobenzarine. Pain affects her daily activities, functioning, mood, sleep and social interactions. Pain is constant and is rated 7-10/10, worst during mornings and afternoon. Patient has been on permanent disability for mental health disorders and chronic pain syndrome. Patient has two children, 3 years and 17 years old, both delivered via C-sections. She lives with her 3 years old and her mother who assists her with childcare. Location Lower back pain and left shoulder pain Duration Chronic pain for many years Characteristics of symptom or complaint Aching, burning, pins and needles, spasming, cramping, tiring Aggravating or associated factors Sitting, movements, stress, cold weather changes Relieving factors Laying down, rest, tramadol, gabapentin, cyclobenzaprine Treatment PT 2-3 years ago, injections- at [facility] HPI Comments History of Present Illness Details PRIOR 10/10/2020 Seema ROMERO: Jessica is a plesant 35 year old female who presents to the office with complaints of neck and low back pain. She reports her low back pain is most troublesome and this was the focus of the visit. Her pain radiates across her low back and occasionally into BLE without any numbness, tingling, weakness or bowel/bladder dysfunction. Her pain is exacerbated by prolonged sitting, lumbar extension and activity. She denies any previous lumbar surgery. She has completed PT within the year and reports improvement in her discomfort. She was evaluated by [facility] and underwent bilateral SIJ injections with significant alleviation in her discomfort according to her records. She has tried heat and used a back brace with no improvement in her symptoms. She has had imaging in the past but these records are not available today. Denies any chiropractic manipulation, massage or acupuncture. She reports pain onset was sudden has gradually worsened. It is constant, and rates the pain a 8/10. She states the pain is interfering with sleep, activities of daily living and she cannot function normally. The patient reports the pain in terms of tissue damage as sharp, cramping, tingling and aching. She has been taking OTC medications with little to no effect on pain. She is currently on gabapentin, meloxicam, cyclobenzaprine and tramadol with moderate improvement in her symptoms. [facility] Medical History Impaired fasting glucose Arthralgia Localized swelling of both feet Swelling of both hands Cervical spondylosis with radiculopathy Low back pain Depression Anxiety Insomnia Gastritis Obesity (BMI 30-39.9) Smoker Left lateral epicondylitis Lumbar degenerative disc disease Surgical History History of section Family History Father No problems noted. Mother Past heart attack Sister Endometrial ca Other Mental health problem Substance abuse Social History Housing: House Alcohol intake: former Patient Tobacco Use Status: Current everyday Tobacco user Tobacco use type: Cigarette Cigarettes Per Day: 8 e-Cigarette/Vaping Use: Never Used Second Hand Smoke Exposure: Yes service: No Current occupational status: disabled Current occupation: rt hand Cognitive needs: No Hearing needs: No Vision needs: No Review of Systems Const All systems reviewed & are unremarkable except as noted in HPI and below ENT Reports Normal hearing present Neuro Reports Normal hearing present and Denies Abnormal speech present Physical Exam Const General: cooperative, healthy appearing, no acute distress, alert, awake and well groomed Nutritional Appearance: well nourished and obese Orientation/consciousness: patient oriented x3 Limitations: no limitations HEENT Head: Yes normal to inspection, Yes normocephalic and Yes atraumatic Ears: hearing grossly normal bilaterally Face and sinus: Yes normal facial exam Eyes General: appearance normal, both eyes and all related structures Neck Neck: Yes normal visual inspection, Yes full ROM, Yes no lymphadenopathy, Yes supple, No anterior neck swelling, Yes no JVD and Yes prominent dorsocervical fat pad Resp Effort & Inspection: normal respiratory effort, able to speak in complete sentences, no audible wheezes, no cough and symmetric chest movement Cardio Jugular venous distension: no JVD Palpation: other (no appreciable rhythmic abnormalities ) Peripheral pulses: radial pulses present, posterior tibial pulses present and dorsalis pedis present GI Inspection: Yes normal to inspection and Yes obesity Palpation (GI): Soft to palpation and nontender Back/Spine/Pelvis Other: Patient able to walk on heels and tip toes with no difficulties demonstrating good motor tone. Can flex forward to 60-70 degrees and extend to 5-10 degrees before experiencing lumbar pain. Demonstrates 5/5 strength of quadriceps bilaterally as well as flexion/dorsiflexion of bilateral feet against resistance. 2+ pedal pulses bilaterally. Straight leg rise with dorsiflexion negative bilaterally. 2+ patellar and achilles reflexes bilaterally. Pelvic compression test and stinchfield test + bilaterally. Fortino test reproduces bilateral knee and lateral hip pain but not low back. Mild TTP in projection of bilateral SIJ. Facet loading test + bilaterally. Multiple 16/16 TTP upper and lower extremities bilaterally. Cervical Spine: cervical ROM normal Thoracic/Lumbar Spine: thoracic and lumbar spine normal to inspection, No Thoracic/lumbar spine scar(s), straight leg raise negative bilaterally, pain with thoraco-lumbar ROM, No paraspinal muscle tenderness, thoraco-lumbar ROM limited, thoracic spinal tenderness and lumbar spinal tenderness at L4 and at L5 Sacroiliac joints: bilaterally tender to palpation Neuro General: patient oriented x3, gait normal, moves all extremities and Normal light touch and pain sensation Cranial nerves: Yes Normal hearing present Speech: No Abnormal speech present Gait exam (Neuro): Normal gait present Motor exam (neuro): 5/5 motor strength present throughout and no tremor noted Psych Appearance: grossly normal Speech and movement: Normal speech and movement present Affect: normal affect Thought process: Normal thought process present Thought content: Normal thought content present, suicidality (none), no hallucinations and Depressive thoughts present Insight: Good insight present (Psych) Judgement: Good judgement present (Psych) Results Reviewed Results Reviewed: XR LUMBOSACRAL SPINE 10/12/20 CLINICAL INFORMATION: Spondylosis without myelopathy or radiculopathy. COMPARISON: None TECHNIQUE: Three views of the lumbosacral spine. FINDINGS: There is straightening of the lumbar spine. Otherwise, the exam is unremarkable. No significant disc space narrowing is seen. Some minimal spondylitic changes seen with some minor superior endplate osteophytes arising from L3 and L4. IMPRESSION: Minimal spondylitic changes with good preservation of disc heights and disc spaces. XR KNEE AP STANDING, BILATERAL 03/15/21 FINDINGS: No significant joint space narrowing. No marginal osteophytes. No osseous erosion. No fracture or dislocation. No abnormal soft tissue calcification. IMPRESSION: Unremarkable examination. Assessment & Plan Assessment & Plan (1) Left shoulder pain: Code(s): M25.512 - Pain in left shoulder (2) Sacroiliac joint pain: Code(s): M53.3 - Sacrococcygeal disorders, not elsewhere classified (3) Spondylosis of lumbar region without myelopathy or radiculopathy: Code(s): M47.816 - Spondylosis without myelopathy or radiculopathy, lumbar region (4) Lumbar degenerative disc disease: Code(s): M51.36 - Other intervertebral disc degeneration, lumbar region (5) Fibromyalgia: Code(s): M79.7 - Fibromyalgia Plan 1. Lumbar spine and left shoulder imaging to assess degree of degenerative changes, any subluxation, listhesis, compression fractures or pars defects. 2. Will obtain medical records from [facility] for past injections and procedures. Discussed interventional treatments for shoulder and low back pain, including neuromodulation with PNS trial, therapeutic injections, RFA procedures. Informational pamphlet provided to patient. 3. Refill sent for cyclobenzaprine, discussed with patient side effects and precautions. I have informed patient that our chronic opioid program is not accepting new patients. She is trying to obtain refill for tramadol which has been prescribed in [place] pain clinic before. 4. Encouraged daily physical activity, aqua therapy, adequate hydration, good posture, CBT therapy, and weight loss. All questions and concerns have been answered and patient agreed with the plan. Follow up for xray results and sooner as needed. Orders: Orders XR lumbar spine 4V min Today M47.816 - Spondylosis without myelopathy or radiculopathy, lumbar region, M51.36 - Other intervertebral disc degeneration, lumbar region, M53.3 - Sacrococcygeal disorders, not elsewhere classified XR shoulder LT min 2V Today M25.512 - Pain in left shoulder Medications: Refilled cyclobenzaprine 10 mg PO TID PRN 90 tabs 1RF for muscle spasm Discontinued gabapentin Discontinued Reason: Duplicate 800 mg PO TID 90 tabs 0RF Coding Level of Care Code New Pt Level 4 (51754) Diagnoses Left shoulder pain M25.512 Sacroiliac joint pain M53.3 Spondylosis of lumbar region without myelopathy or radiculopathy M47.816 Lumbar degenerative disc disease M51.36 Fibromyalgia M79.7
[2023-02-20 11:15] VITALS: BP 120/84; PULSE 79; O2SAT 96; BMI 36.9
== END 2023-02-20 11:44 | disposition home or self-care (01) ==
PROVIDERS: PCP Internal Medicine; Visit Provider Nurse Practitioner Family
DX: M25.512 Pain in left shoulder (principal); M53.3 Sacrococcygeal disorders, not elsewhere classified; M47.816 Spondylosis without myelopathy or radiculopathy, lumbar region; M51.36 Other intervertebral disc degeneration, lumbar region; M79.7 Fibromyalgia
CPT/HCPCS: 99204

== ENCOUNTER 2023-03-31 08:30 | Outpatient (AMB) | payer OTHER, SELFPAY ==
--- NOTE | 2023-03-31 08:51 | MHC.OFFVIS ---
Intake Vital Signs 03/31/23 09:01 Height 5 ft 2 in Weight 208 lb 1.862 oz BMI 38.1 BP 120/80 Blood Pressure Location Rt brachial Position Sitting Pulse 95 Pulse Source Pulse Oximeter Temp 97.5 F Temp Source Skin Pulse Oximetry (%) 98 Oxygen Delivery Method Room Air Intake Visit Reasons: Joint Pain Intake Note: New patient, internally referred, presents to office today for joint pain. Joints affected:low back, left shoulder Pain began approx: years ago Has tried: cortisone injections on lower back, oral medications Adaptive Physical Education Specialist Required: No Accompanied by: Self / Same As Patient Allergies No Known Allergies [No Known Allergies*] Allergy (Verified 03/31/23 09:02) HPI HPI Comments History of Present Illness Details Jessica is a plesant 38 year old female who presents to the office with complaints of neck and low back pain on referral from PCP. She reports her low back pain is most troublesome. Her pain radiates across her low back and occasionally into BLE without any numbness, tingling, weakness or bowel/bladder dysfunction. Her pain is exacerbated by prolonged sitting, lumbar extension and activity. She denies any previous lumbar surgery. She has completed PT within the year and reports improvement in her discomfort but is not consistent in doing the exercises at home. She was evaluated by [facility] and underwent bilateral SIJ injections with significant alleviation in her discomfort according to her records. She has tried heat and used a back brace with no improvement in her symptoms. She has had imaging in the past but these records are not available today. Denies any chiropractic manipulation, massage or acupuncture. She reports pain onset was sudden has gradually worsened. It is constant, and rates the pain a 8/10. She states the pain is interfering with sleep, activities of daily living and she cannot function normally. The patient reports the pain in terms of tissue damage as sharp, cramping, tingling and aching. She has been taking OTC medications with little to no effect on pain. She is currently on gabapentin, meloxicam, cyclobenzaprine, meloxicam and tramadol with moderate improvement in her symptoms. She denies uveiits, psoriasis, dactylitiis, crohn's and UC symptoms. She had injection for plantar fasciitis about 9 months ago in [place]. She has had a left knee injection 2 years ago and her knee has been ok since. [facility] Medical History Impaired fasting glucose Arthralgia Localized swelling of both feet Swelling of both hands Cervical spondylosis with radiculopathy Low back pain Depression Anxiety Insomnia Gastritis Obesity (BMI 30-39.9) Smoker Left lateral epicondylitis Lumbar degenerative disc disease Surgical History History of section Family History (Updated 03/31/23 @ 09:04 by YARIEL Alejandro) Father No problems noted. Mother Past heart attack Arthritis Sister Endometrial ca Other Mental health problem Substance abuse Social History (Updated 03/31/23 @ 09:05 by YARIEL Alejandro) Housing: House Alcohol intake: former Patient Tobacco Use Status: Current everyday Tobacco user Tobacco use type: Cigarette Cigarettes Per Day: 8 e-Cigarette/Vaping Use: Never Used Second Hand Smoke Exposure: Yes Substance Use Type: Crack/Cocaine and Marijuana service: No Current occupational status: disabled Current occupation: rt hand Cognitive needs: No Hearing needs: No Vision needs: No Female Reproductive History Menstrual Total pregnancies: 2 Physical Exam Vital Signs: Last Vital Signs Temp 97.5 F 03/31/23 09:01 Pulse 95 03/31/23 09:01 BP 120/80 03/31/23 09:01 Pulse Ox 98 03/31/23 09:01 Oxygen Delivery Method Room Air 03/31/23 09:01 BMI result Body Mass Index 38.1 APPEARANCE: Patient in no acute distress EYES no redness, pupils equal and reactive to light, eyelids normal EARS:? External ear normal, canal clear and tympanic membrane normal. NOSE/SINUS:? Airflow through both nares, no nasal discharge, no bleeding THROAT:? Oral mucosa moist, no ulcerations NECK:? No thyromegaly or masses, no adenopathy, trachea midline. HEART:? Regular rhythm, S1-S2 heard, no murmurs, rubs or gallops. LUNG:? Clear to percussion and auscultation ABD:? Normal bowel sounds, no organomegaly, masses or tenderness. EXTREMITIES:? No edema, no calf tenderness, normal peripheral pulses. NEURO:? Oriented and alert x3.? No focal weakness.? Reflexes symmetric.? Gait normal. SKIN:? There are no skin lesions evident. No objective signs of Raynaud's phenomenon. JOINT EXAM: ?? Cervical Spine:.? Full range of motion without pain; no tenderness. Thoracic Spine:.? No scoliosis.? No tenderness on palpation. Lumbar Spine:.? Alignment normal.? Full range of motion without pain, no tenderness. tenderness to lower flank bilateral Chest Wall:.? No tenderness, swelling, increased warmth or erythema. Hands:.? Normal pain-free range of motion without tenderness, swelling, increased warmth or erythema. Able to make a full fist and has a good gimp tacker strength. Wrists:.? Normal pain-free range of motion without tenderness, swelling, increased warmth or erythema. Elbows:. Normal pain-free range of motion without swelling, increased warmth or erythema. tenderness at left lateral epicondyle Shoulders:.?? Full range of motion without pain. No tenderness, weakness, swelling, increased warmth or erythema. Hips:.? Full range of motion without pain. Hip bursa:.? No tenderness. Knees:.?? Normal pain-free range of motion without tenderness, swelling, increased warmth or erythema.? There is no effusion or crepitation Ankles:.? Normal pain-free range of motion without tenderness, swelling, increased warmth or erythema. Feet:.? Normal pain-free range of motion without tenderness, swelling, increased warmth or erythema. Tender points:? tenderness to digital palpation at the trapezius, left lateral epicondyle, Results Reviewed Results Reviewed: 02/2023 EXAMINATION: XR SHOULDER, LEFT CLINICAL INFORMATION: Pain. COMPARISON: None available. TECHNIQUE: AP external rotation, Grashey, scapular Y, and axillary views of the left shoulder. FINDINGS: The bones and soft tissues are normal. No fracture. Glenohumeral and acromioclavicular alignment is anatomic with normal joint space. No abnormal soft tissue calcifications. XR/XR shoulder LT min 2V IMPRESSION: Normal left shoulder. [address] [address] XRay Report Signed Patient: Jessica Quiros MR#: [id number] : 1985 Acct:[id number] Age/Sex: 38 / F ADM Date: 02/20/23 Loc: HO.XRAY Attending Dr: Debbie ROMERO Ordering Physician: Debbie Weber Date of Service: 02/20/23 Procedure(s): XR lumbar spine 4V min Accession Number(s): [id number] cc: Debbie Weber; Marvel Sanon MD~ 02/2023 EXAMINATION: XR LUMBOSACRAL SPINE WITH OBLIQUES CLINICAL INFORMATION: Sacrococcygeal disorders. COMPARISON: Radiographs dated 10/12/2020. TECHNIQUE: AP, both oblique, and lateral views of the lumbar spine. Lateral view of the lumbosacral junction. FINDINGS: The vertebral bodies and posterior elements are normal. No spondylolysis defect is seen on the oblique views, and the sacroiliac joints are well-maintained. The disc spaces are preserved and the vertebral alignment is normal. There is mild anterior spondylosis of the L3 and L4 upper endplates. The paraspinal soft tissues are normal. XR/XR lumbar spine 4V min IMPRESSION: 1. No acute fracture or spondylolisthesis is seen. There is no spondylolysis defect. 2. The lumbar disc spaces are well-maintained. 3. There is mild anterior spondylosis of the L3 and L4 upper endplates. 4. The sacroiliac joints are symmetric and well-maintained. [place] [address] XRay Report Signed Patient: Jessica Quiros MR#: [id number] : 1985 Acct:[id number] Age/Sex: 35 / F ADM Date: 07/11/20 Loc: HO.LAB Attending Dr: Roosevelt Emmanuel MD Ordering Physician: Roosevelt Emmanuel MD Date of Service: 07/11/20 Procedure(s): XR hand LT 2V Accession Number(s): [id number] cc: Roosevelt Emmanuel MD~ 07/2020 EXAMINATION: BILATERAL HAND AND BILATERAL FOOT. CLINICAL INFORMATION: Pain. COMPARISON: None TECHNIQUE: 3 views each hand. 3 views each foot. FINDINGS: Bilateral hands: The PIP, DIP and MCP joint spaces are maintained. The intercarpal joints recommended as well. No visible fracture, dislocation or subluxation seen. Bilateral foot: There are small calcaneal calculi enthesophytes. Ankle mortise and subtalar joints are normal. The joint spaces are maintained normal. No bony erosive changes. The soft tissues are normal. 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 There is a small bone fragment lateral to left distal fourth metatarsal likely old injury. XR/XR hand LT 2V IMPRESSION: Unremarkable bilateral hand exam. Bilateral small calcaneal heel and retrocalcaneal enthesophytes. Short left fourth metatarsal. Small avulsion bone fragment seen lateral to the distal fourth metatarsal likely old injury. 01/2021 EXAMINATION: XR KNEE, LEFT CLINICAL INFORMATION: Left knee pain COMPARISON: None TECHNIQUE: Four views of the left knee. FINDINGS: Mild generalized tibial spine spurring and patella spurring. No effusion. Borderline patella pj. Patellofemoral joint without subluxation. XR/XR knee LT 4V IMPRESSION: Mild spurring only. Laboratory Tests 07/11/20 08:05 Rheumatoid Factor < 15.0 TRISTAN Screen NEGATIVE Assessment & Plan Assessment & Plan (1) Left shoulder pain: Code(s): M25.512 - Pain in left shoulder Qualifiers: Chronicity: chronic Qualified Code(s): M25.512 - Pain in left shoulder; G89.29 - Other chronic pain (2) Sacroiliac joint pain: Code(s): M53.3 - Sacrococcygeal disorders, not elsewhere classified (3) Spondylosis of lumbar region without myelopathy or radiculopathy: Code(s): M47.816 - Spondylosis without myelopathy or radiculopathy, lumbar region (4) Lumbar degenerative disc disease: Code(s): M51.36 - Other intervertebral disc degeneration, lumbar region Plan Ms Lopez presents for evaluation of lower back pain. The patient hurt her back many years ago in the arm and has had epidurals for two . She thinks these are the factors that incites her back pain. On initial review of chart, history and diagnostics, it does not appear that there is an inflammatory cause or associated CTD to the patients pain. per xray there is mild OA to L4-L5. On PE, her pain is to the upper parts of the glutueal muscles and the lower flank areas of paraspinal muscles. She has received past injections and will continue to look into that. It appears she was in pain management [place] and is looking to establish care again. I think this is a good idea to pursue this. Though her symptoms appear from mechanical causes, I will order labs to evaluate further for inflammation. I discused at length with patient that most of her symptoms appears to be with muscle surrounding her pain. She would benefit from activities that will strengthen these areas and also her abdominal muscles. I recommend daily physical activity, aqua therapy, adequate hydration, good posture to alleviate the tension in shoulders and neck and weight loss. I spent 40 minutes reviewing chart, evaluating and counseling patient and documenting. Orders: Orders Complete Blood Count Auto Diff Today M47.816 - Spondylosis without myelopathy or radiculopathy, lumbar region, M53.3 - Sacrococcygeal disorders, not elsewhere classified C Reactive Protein Today M47.816 - Spondylosis without myelopathy or radiculopathy, lumbar region, M53.3 - Sacrococcygeal disorders, not elsewhere classified Rheumatoid Factor Today M47.816 - Spondylosis without myelopathy or radiculopathy, lumbar region, M53.3 - Sacrococcygeal disorders, not elsewhere classified Cyclic Citrullinated Peptide Today M47.816 - Spondylosis without myelopathy or radiculopathy, lumbar region, M53.3 - Sacrococcygeal disorders, not elsewhere classified HLA B27 Today M47.816 - Spondylosis without myelopathy or radiculopathy, lumbar region, M53.3 - Sacrococcygeal disorders, not elsewhere classified TRISTAN Reflex Titer and Pattern Today M47.816 - Spondylosis without myelopathy or radiculopathy, lumbar region, M53.3 - Sacrococcygeal disorders, not elsewhere classified Comprehensive Met. Panel Today M47.816 - Spondylosis without myelopathy or radiculopathy, lumbar region, M53.3 - Sacrococcygeal disorders, not elsewhere classified Creatine Kinase Total Today M47.816 - Spondylosis without myelopathy or radiculopathy, lumbar region, M53.3 - Sacrococcygeal disorders, not elsewhere classified Erythrocyte Sedimentation Rate Today M47.816 - Spondylosis without myelopathy or radiculopathy, lumbar region, M53.3 - Sacrococcygeal disorders, not elsewhere classified Aldolase Today M47.816 - Spondylosis without myelopathy or radiculopathy, lumbar region, M53.3 - Sacrococcygeal disorders, not elsewhere classified Coding Level of Care Code Tele New Pt Level 4 (61082) Diagnoses Chronic left shoulder pain M25.512; G89.29 Chronicity: chronic Sacroiliac joint pain M53.3 Spondylosis of lumbar region without myelopathy or radiculopathy M47.816 Lumbar degenerative disc disease M51.36
[2023-03-31 09:01] VITALS: BP 120/80; PULSE 95; TEMP 36.4; O2SAT 98; BMI 38.1
--- NOTE | 2023-03-31 09:50 | A.OFFVIS_ITS ---
<Statement entered by NICK Barr-BC - 07/31/23 16:18> This is a duplicate of a visit. and is not the valid version Vital Signs 3 03/31/23 09:01 Height 5 ft 2 in Weight 208 lb 1.862 oz BMI 38.1 BP 120/80 Blood Pressure Location Rt brachial Position Sitting Pulse 95 Pulse Source Pulse Oximeter Temp 97.5 F Temp Source Skin Pulse Oximetry (%) 98 Oxygen Delivery Method Room Air Intake Visit Reasons: Joint Pain Allergies No Known Allergies [No Known Allergies*] Allergy (Verified 04/01/23 09:21) [facility] Medical History Impaired fasting glucose Arthralgia Localized swelling of both feet Swelling of both hands Cervical spondylosis with radiculopathy Low back pain Depression Anxiety Insomnia Gastritis Obesity (BMI 30-39.9) Smoker Left lateral epicondylitis Lumbar degenerative disc disease Surgical History History of section Family History Father No problems noted. Mother Past heart attack Arthritis Sister Endometrial ca Other Mental health problem Substance abuse Social History Housing: House Alcohol intake: former Patient Tobacco Use Status: Current everyday Tobacco user Tobacco use type: Cigarette Cigarettes Per Day: 8 e-Cigarette/Vaping Use: Never Used Second Hand Smoke Exposure: Yes Substance Use Type: Crack/Cocaine and Marijuana service: No Current occupational status: disabled Current occupation: rt hand Cognitive needs: No Hearing needs: No Vision needs: No Physical Exam Vital Signs: Last Vital Signs Temp 97.5 F 03/31/23 09:01 Pulse 95 03/31/23 09:01 BP 120/80 03/31/23 09:01 Pulse Ox 98 03/31/23 09:01 Oxygen Delivery Method Room Air 03/31/23 09:01 BMI result Body Mass Index 38.1 Assessment & Plan Assessment & Plan (1) Left shoulder pain: Code(s): M25.512 - Pain in left shoulder Category: Medical (2) Sacroiliac joint pain: Code(s): M53.3 - Sacrococcygeal disorders, not elsewhere classified Category: Medical (3) Spondylosis of lumbar region without myelopathy or radiculopathy: Code(s): M47.816 - Spondylosis without myelopathy or radiculopathy, lumbar region Category: Medical (4) Lumbar degenerative disc disease: Code(s): M51.36 - Other intervertebral disc degeneration, lumbar region Category: Medical (5) Fibromyalgia: Code(s): M79.7 - Fibromyalgia Category: Medical Orders: Orders Complete Blood Count Auto Diff 03/31/23 M53.3 - Sacrococcygeal disorders, not elsewhere classified, M47.816 - Spondylosis without myelopathy or radiculopathy, lumbar region C Reactive Protein 03/31/23 M53.3 - Sacrococcygeal disorders, not elsewhere classified, M47.816 - Spondylosis without myelopathy or radiculopathy, lumbar region Rheumatoid Factor 03/31/23 M53.3 - Sacrococcygeal disorders, not elsewhere classified, M47.816 - Spondylosis without myelopathy or radiculopathy, lumbar region Cyclic Citrullinated Peptide 03/31/23 M53.3 - Sacrococcygeal disorders, not elsewhere classified, M47.816 - Spondylosis without myelopathy or radiculopathy, lumbar region HLA B27 03/31/23 M53.3 - Sacrococcygeal disorders, not elsewhere classified, M47.816 - Spondylosis without myelopathy or radiculopathy, lumbar region TRISTAN Reflex Titer and Pattern 03/31/23 M53.3 - Sacrococcygeal disorders, not elsewhere classified, M47.816 - Spondylosis without myelopathy or radiculopathy, lumbar region Comprehensive Met. Panel 03/31/23 M53.3 - Sacrococcygeal disorders, not elsewhere classified, M47.816 - Spondylosis without myelopathy or radiculopathy, lumbar region Creatine Kinase Total 03/31/23 M53.3 - Sacrococcygeal disorders, not elsewhere classified, M47.816 - Spondylosis without myelopathy or radiculopathy, lumbar region Erythrocyte Sedimentation Rate 03/31/23 M53.3 - Sacrococcygeal disorders, not elsewhere classified, M47.816 - Spondylosis without myelopathy or radiculopathy, lumbar region Aldolase 03/31/23 M53.3 - Sacrococcygeal disorders, not elsewhere classified, M47.816 - Spondylosis without myelopathy or radiculopathy, lumbar region
== END 2023-03-31 09:41 | disposition home or self-care (01) ==
PROVIDERS: PCP Internal Medicine; Referring Provider Internal Medicine; Visit Provider Nurse Practitioner Family
DX: M25.512 Pain in left shoulder (principal); G89.29 Other chronic pain; M53.3 Sacrococcygeal disorders, not elsewhere classified; M47.816 Spondylosis without myelopathy or radiculopathy, lumbar region; M51.36 Other intervertebral disc degeneration, lumbar region
CPT/HCPCS: 99204; 99214

== ENCOUNTER → 2023-03-31 08:30 | Outpatient (BNVA) | payer OTHER, SELFPAY | PROVIDERS: PCP Internal Medicine; Visit Provider Nurse Practitioner Family ==

== ENCOUNTER 2023-04-01 08:54 | Outpatient (AMB) | payer OTHER, MEDICAID, SELFPAY ==
--- NOTE | 2023-04-01 09:16 | A.OFFVIS_ITS ---
Intake Vital Signs 04/01/23 09:23 Height 5 ft 2 in Weight 216 lb 2 oz BMI 39.5 BP 124/80 Blood Pressure Location Rt brachial Position Sitting Pulse 79 Pulse Source Pulse Oximeter Pulse Oximetry (%) 98 Oxygen Delivery Method Room Air Intake Visit Reasons: INP-Chronic Fatigue-Conf Intake Note: Patient presents for chronic fatigue. Wants a CPAP machine. Having trouble sleeping at night and snoring and sleeping during the day. Allergies No Known Allergies [No Known Allergies*] Allergy (Verified 04/01/23 09:21) HPI HPI Comments History of Present Illness Details 38 y/o female patient presents for new i n-person visit to manage sleep apnea. Pt reports she was diagnosed with BHAVIN and used CPAP in 2021. However, she returned the CPAP due to non compliant. Pt's baby was unable to sleep due to the CPAP noise, patient did not use CPAP enough. Pt reports snoring, wakes up gasping and non refreshing sleep with daytime sleepiness. Sleep questionnaire: Have you ever been diagnosed with a sleep disorder? Yes, BHAVIN. Have you ever had a sleep study in the past? Yes. Have you ever been treated for a sleep disorder? Yes. Do you take medications for a sleep disorder? Yes, trazodone 200 mg, amitriptyline 100 mg. Do you snore? Yes. Do you wake up gasping at night? Yes. Do you have episodes of apneas? Yes. If yes, are they witnessed? Yes. Do you have episodes of nocturnal chest pain or dyspnea? Yes. Do you have difficulty initiating sleep? Yes. Do you have difficulty maintaining sleep? Yes. Do you wake up tired? Yes. Do you have headaches upon awakening? Yes. Do you wake up with dry mouth or throat? Yes. Do you have GERD? Yes. Do you have nocturia? No. Do you have nocturnal leg cramps? No. Do you have symptoms of restless legs? No. Do you act out your dreams? No. Sleep hygiene questionnaire: What is your usual sleep routine? Usual bedtime is at 11 pm; Usual wake up time is at 2 am. Do you take naps? Yes. Is your sleep environment cool, dark, and quiet? Yes. Do you exercise? No. Do you take caffeine or other stimulants? Soda. Do you use electronics in bed? No. What is your work schedule? No. Hypersomnolence questionnaire: Do you have daytime tiredness or fatigue? Yes. Do you easily fall asleep when inactive? Yes. Have you ever had episodes of sudden weakness? No. Have you ever had episodes of sudden weakness associated with strong emotions? No. [facility] Medical History Impaired fasting glucose Arthralgia Localized swelling of both feet Swelling of both hands Cervical spondylosis with radiculopathy Low back pain Depression Anxiety Insomnia Gastritis Obesity (BMI 30-39.9) Smoker Left lateral epicondylitis Lumbar degenerative disc disease Surgical History History of section Family History Father No problems noted. Mother Past heart attack Arthritis Sister Endometrial ca Other Mental health problem Substance abuse Social History Housing: House Alcohol intake: former Patient Tobacco Use Status: Current everyday Tobacco user Tobacco use type: Cigarette Cigarettes Per Day: 8 e-Cigarette/Vaping Use: Never Used Second Hand Smoke Exposure: Yes Substance Use Type: Crack/Cocaine and Marijuana service: No Current occupational status: disabled Current occupation: rt hand Cognitive needs: No Hearing needs: No Vision needs: No Review of Systems Const All systems reviewed & are unremarkable except as noted in HPI and below Physical Exam Vital Signs: Last Vital Signs Pulse 79 04/01/23 09:23 BP 124/80 04/01/23 09:23 Pulse Ox 98 04/01/23 09:23 Oxygen Delivery Method Room Air 04/01/23 09:23 BMI result Body Mass Index 39.5 Const General: cooperative and tired appearing Nutritional Appearance: obese Orientation/consciousness: patient oriented x3 Neck Neck: Yes full ROM and Yes supple Resp Effort & Inspection: normal respiratory effort and able to speak in complete sentences Neuro General: patient oriented x3, gait normal and moves all extremities Cranial nerves: Yes CN's II-XII intact bilaterally Cognition (Neuro): normal cognition Gait exam (Neuro): Normal gait present Motor exam (neuro): 5/5 motor strength present throughout Psych Appearance: grossly normal Mental Status: mental status grossly normal Speech and movement: Normal speech and movement present Affect: normal affect Attitude: cooperative Assessment & Plan Assessment & Plan (1) BHAVIN (obstructive sleep apnea): Code(s): G47.33 - Obstructive sleep apnea (adult) (pediatric) (2) Snoring: Code(s): R06.83 - Snoring (3) Obesity (BMI 30-39.9): Code(s): E66.9 - Obesity, unspecified (4) Daytime sleepiness: Code(s): R40.0 - Somnolence Plan Pt is advised to undergo home sleep study to assess for sleep apnea. Will f/u with pt after study to discuss results and appropriate treatment op tions. Advised patient to cut down smoking and increase physical activities during daytime. Wt reduction advised. Pt to call with any worsening concerns or questions. Orders: Orders RT home sleep study Today G47.33 - Obstructive sleep apnea (adult) (pediatric), R06.81 - Apnea, not elsewhere classified, R06.83 - Snoring Coding Level of Care Code New Pt Level 3 (11287) Diagnoses BHAVIN (obstructive sleep apnea) G47.33 Snoring R06.83 Obesity (BMI 30-39.9) E66.9 Daytime sleepiness R40.0
[2023-04-01 09:23] VITALS: BP 124/80; PULSE 79; O2SAT 98; BMI 39.5
== END 2023-04-01 09:40 | disposition home or self-care (01) ==
PROVIDERS: PCP Internal Medicine; Visit Provider Nurse Practitioner Family
DX: G47.33 Obstructive sleep apnea (adult) (pediatric) (principal); R06.83 Snoring; E66.9 Obesity, unspecified; R40.0 Somnolence
CPT/HCPCS: 99203; 99213

== ENCOUNTER → 2023-04-01 08:54 | Outpatient (BNVA) | payer MEDICARE, MEDICAID, SELFPAY | PROVIDERS: PCP Internal Medicine; Visit Provider Nurse Practitioner Family ==